=== PATIENT | female | born 1965 | race Two or more races ===

== ENCOUNTER 2023-06-26 05:00 | Day surgery (SDC) | payer OTHER ==
[2023-06-24 10:14] LABS: INR 0.99; PARTIAL THROMBOPLASTIN TIME 30.3 SECONDS (22.0-34.0); PROTHROMBIN TIME 10.4 SECONDS (9.0-11.5)
[~2023-06-26 05:00] MED LIST: NASONEX 24HR AL17 ML; NEUROTIN; PEPCID; SYNTHROID137 MCG PO; VITAMIN D; ZETIA10 MG
[2023-06-26] MEDS ORDERED: CEFAZOLIN SODIUM 1,000 MG VIAL ONE (07:17)
[2023-06-26] MEDS ORDERED: POVIDONE-IODINE 118 ML BOTT TOP ONE ×2 (07:17→09:15)
[2023-06-26] MEDS ORDERED: POVIDONE-IODINE SCRUB 118 ML BOTT TOP ONE ×2 (07:17→09:15)
[2023-06-26] MEDS ORDERED: NEOMYCIN/POLYMYXIN B/HYDROCORT 20 DR/ML BOTTLE OT ONE (07:26)
[2023-06-26] MEDS ORDERED: LIDOCAINE HCL 1%/Epi 20ML VIAL IJ ONE ×2 (07:30→09:15)
[2023-06-26] MEDS ORDERED: EPINEPHRINE HCL/PF 1 MG/ML AMPUL ONE (07:30)
[2023-06-26] MEDS ORDERED: BACITRACIN 28.35 GM OINT.TUBE TOP ONE ×3 (07:30→09:30)
[2023-06-26] MEDS ORDERED: DIPHENHYDRAMINE HCL 50 MG/ML VIAL 1ML ONE (07:40)
[2023-06-26] MEDS ORDERED: EPINEPHRINE HCL/PF 1 MG/ML AMPUL IJ ONE (09:15)
[2023-06-26] MEDS ORDERED: DIPHENHYDRAMINE HCL 50 MG/ML VIAL 1ML IV ONE (09:15)
[2023-06-26] MEDS ORDERED: CEFAZOLIN SODIUM 1,000 MG VIAL IV ONE (09:15)
[2023-06-26] MEDS ORDERED: NEOMYCIN/BACITRACIN/POLYMYXINB 3.5 GM OINT..GM. OP ONE (09:15)
[2023-06-26] MEDS ORDERED: SUGAMMADEX SODIUM 200 MG/2 ML VIAL IV ONE ×2 (11:53→12:00)
[2023-06-26] MEDS ORDERED: PROMETHAZINE HCL 25 MG/ML AMPUL IM PRN (13:45)
[2023-06-26] MEDS ORDERED: KETOROLAC TROMETHAMINE 60 MG VIAL IM PRN (13:45)
== END 2023-06-26 16:00 | disposition home or self-care (01) ==
LOC: CIR.AMB 05:00
PROVIDERS: ATTEND Otolaryngology Otology & Neurotology
DX: H71.21 Cholesteatoma of mastoid, right ear (principal); Z88.8 Allergy status to other drugs, medicaments and biological substances